=== PATIENT | female | born 1960 | race Caucasian/White ===

== ENCOUNTER 2018-08-13 16:44 | Emergency (ER) | payer BC ==
[2018-08-13] MEDS ORDERED: Sodium Chloride 0.9% 1,000 ML IV ONE ×2 (17:15→18:54)
[2018-08-13] MEDS: Sodium Chloride 0.9% 10 ML Syringe FLUSH PRN ×2 (17:27→18:20)
[2018-08-13] MEDS ORDERED: Iopamidol 612 MG/ML 100 ML Bottle IVPUSH ONE (17:43)
[2018-08-13] MEDS ORDERED: Piperacillin/Tazobactam 4.5 GM in Sodium Chloride 0.9% 100 ML IV STA (18:23)
--- NOTE | 2018-08-13 19:00 | CT ---
CT abdomen and pelvis Technique: Multiple axial sections were obtained from above the dome of the diaphragm inferiorly through the pubic symphysis. Intravenous contrast was utilized. No oral contrast has been given. Delayed images were also obtained through the abdomen and pelvis. Comparison: No prior abdominal imaging. Findings: Small portion of the visualized lung bases show nothing acute. Liver is small and nodular in appearance compatible with cirrhotic change. Surgical clips are seen from prior cholecystectomy. Spleen is enlarged with greatest measurement of 19.3 cm which is in AP dimension. Large amount of ascites is seen throughout the abdomen and pelvis. Adrenal glands show no nodule. Pancreas shows no discrete abnormality. Aorta shows atherosclerotic change which continues into the iliac vessels without aneurysm. No retroperitoneal adenopathy or mesenteric abnormalities are seen. Fluid within the pelvis pushes the bladder to the left side. Mild subcutaneous edema is seen. Delayed images shows contrast within the ureters as well as within the bladder. Bone window settings were reviewed which shows mild degenerative change throughout the spine. No acute osseous abnormality is appreciated. Impression: 1. Cirrhotic change within the liver with splenomegaly. 2. Large amount of ascites within the abdomen and pelvis. Pelvic ascites displaces the bladder to the left side. 3. Mild subcutaneous edema. 4. Other incidental findings. Diagnostic code #3
[2018-08-13] MEDS ORDERED: metroNIDAZOLE/Normal Saline 500 MG in Premix Bag 1 BAG IV ONE (19:07)
--- NOTE | 2018-08-13 19:07 | EDM.PDOC ---
ED HPI GENERAL MEDICAL PROBLEM - General Chief Complaint: Gastrointestinal Problem Stated Complaint: [facility] Time Seen by Provider: 08/13/18 17:40 Source of Information: Reports: Patient History Limitations: Reports: No Limitations - History of Present Illness INITIAL COMMENTS - FREE TEXT/NARRATIVE: 58-year-old female sent over from the walk-in clinic for abdominal pain and hypotension. Pain apparently started yesterday. She has a history of cirrhosis and advanced liver disease. She has had paracentesis in the past, last was in June and they took off approximately 5L. She feels distended today. She is complaining of significant abdominal pain. Reportedly at the walk-in clinic where she initially presented her pressure was 60s to 70 systolic. She is also complaining that she is short of breath. She report nausea and weakness. No fever. Primary care provider is Dr. Mejia. Patient has a past medical history of type 2 diabetes. - Related Data Allergies Allergy/AdvReac Type Severity Reaction Status Date / Time simvastatin Allergy Cannot Verified 08/13/18 16:54 Remember Past Medical History Gastrointestinal History: Reports: Cirrhosis, Other (See Below) Other Gastrointestinal History: ascites Endocrine/Metabolic History: Reports: Diabetes, Type II, Hypothyroidism Hematologic History: Reports: Other (See Below) Other Hematologic History: thrombocytopenia - Past Surgical History Female Surgical History: Reports: Hysterectomy Social & Family History - Family History Oncologic: Reports: Pancreatic - Tobacco Use Smoking Status *Q: Current Every Day Smoker Years of Tobacco use: 45 Packs/Tins Daily: 0.1 - Caffeine Use Caffeine Use: Reports: Coffee, Soda, Tea - Recreational Drug Use Recreational Drug Use: No ED ROS GENERAL - Review of Systems Review Of Systems: See Below Constitutional: Reports: Weakness. Denies: Fever, Chills Respiratory: Reports: Shortness of Breath Cardiovascular: Denies: Chest Pain GI/Abdominal: Reports: Abdominal Pain, Nausea, Vomiting ED EXAM, GI/ABD - Physical Exam Exam: See Below Exam Limited By: No Limitations General Appearance: Alert, Mild Distress, Obese Respiratory/Chest: No Respiratory Distress, Lungs Clear, Normal Breath Sounds Cardiovascular: No Murmur, Tachycardia GI/Abdominal Exam: Other (Ascites, significant tenderness with light palpation.) Neurological: Alert, Oriented, Normal Cognition Skin Exam: Jaundice EKG INTERPRETATION EKG Date: 08/13/18 Time: 17:20 Rhythm: NSR Rate (Beats/Min): 105 [place]: Normal P-Wave: Present QRS: Normal ST-T: Normal QT: Normal EKG Interpretation Comments: Sinus tachycardia at 105 bpm. Early "r" wave transition - RH pattern. Q waves I , II, III and AVL - non specific they are < 25% of the QRS complex. Reviewed by myself and Dr. Wilson. Course - Vital Signs Last Recorded V/S: Last Vital Signs Temp 98.0 F 08/13/18 16:49 Pulse 105 H 08/13/18 17:35 Resp 21 H 08/13/18 17:35 BP 106/63 08/13/18 16:49 Pulse Ox 93 L 08/13/18 17:35 - Orders/Labs/Meds Orders: Active Orders 24 hr Category Date Time Status EKG Documentation Completion [RC] ASDIRECTED Care 08/13/18 17:17 Active Oxygen Therapy, ED [RC] ASDIRECTED Care 08/13/18 17:17 Active Peripheral IV Care [RC] . DIRECTED Care 08/13/18 17:17 Active Chest 1V Frontal [CR] Stat Exams 08/13/18 17:17 Taken CULTURE BLOOD [BC] Stat Lab 08/13/18 18:18 Ordered CULTURE BLOOD [BC] Stat Lab 08/13/18 18:18 Ordered CULTURE URINE [RM] Stat Lab 08/13/18 18:18 Ordered UA W/MICROSCOPIC [URIN] Stat Lab 08/13/18 17:16 Ordered Norepinephrine 4 MG in D5W @ 2 MCG/MIN(250ml) Med 08/13/18 19:15 Ordered Norepinephrine [Levophed] 4 mg Dextrose 5% in Water 246 ml IV TITRATE Piperacillin/Tazobactam [Piperacil-Tazobact] 4.5 gm Med 08/13/18 18:23 Active Sodium Chloride 0.9% [Normal Saline] 100 ml IV NOW Sodium Chloride 0.9% [Normal Saline] 1,000 ml Med 08/13/18 18:54 Ordered IV ONETIME Sodium Chloride 0.9% [Saline Flush] Med 08/13/18 17:16 Active 10 ml FLUSH ASDIRECTED PRN metroNIDAZOLE/Normal Saline [Flagyl 500 MG in NS 100 ML Med 08/13/18 19:07 Ordered ] 500 mg Premix Bag 1 bag IV ONETIME Blood Culture x2 Reflex Set [OM.PC] Stat Oth 08/13/18 18:18 Ordered Peripheral IV Insertion Adult [OM.PC] Routine Oth 08/13/18 17:16 Ordered EKG 12 Lead [EK] Stat Ther 08/13/18 17:16 Ordered Medication Orders Piperacillin Sod/Tazobactam (Sod 4.5 gm/ Sodium Chloride) 100 mls @ 25 mls/hr IV NOW STA Stop: 08/13/18 22:22 Sodium Chloride (Normal Saline) 1,000 mls @ 999 mls/hr IV ONETIME ONE Stop: 08/13/18 19:54 Metronidazole 500 mg/ Premix 100 mls @ 100 mls/hr IV ONETIME ONE Stop: 08/13/18 20:06 Norepinephrine Bitartrate 4 mg (/ Dextrose/Water) 250 mls @ 7.5 mls/hr IV TITRATE RA; Protocol Sodium Chloride (Saline Flush) 10 ml FLUSH ASDIRECTED PRN PRN Reason: Keep Vein Open Last Admin: 08/13/18 18:20 Dose: 10 ml Admin: 08/13/18 17:27 Dose: 10 ml Labs: Laboratory Tests 08/13/18 08/13/18 08/13/18 Range/Units 17:30 17:30 17:30 WBC 10.46 H (3.98-10.04) K/mm3 RBC 3.63 L (3.98-5.22) M/mm3 Hgb 11.3 (11.2-15.7) gm/L Hct 33.4 L (34.1-44.9) % MCV 92.0 (79.4-94.8) fl MCH 31.1 (25.6-32.2) pg MCHC 33.8 (32.2-35.5) g/dl RDW Std Deviation 53.5 H (36.4-46.3) fL Plt Count 32 L (182-369) K/mm3 MPV 10.9 (9.4-12.3) fl Neutrophils % (Manual) 99 H (40-60) % Band Neutrophils % 0 (0-10) % Lymphocytes % (Manual) 0 L (20-40) % Atypical Lymphs % 0 % Monocytes % (Manual) 1 L (2-10) % Eosinophils % (Manual) 0 L (0.7-5.8) % Basophils % (Manual) 0 L (0.1-1.2) Platelet Estimate Decreased Plt Morphology Comment Normal Poikilocytosis 2+ moderate Remy Cells 2+ moderate Acanthocytes (Spur) 1+ slight RBC Morph Comment Not Reportable PT 17.6 H (9.5-12.1) SECONDS INR 1.63 APTT 34 H (24-31) SECONDS Sodium 123 L (136-145) mEq/L Potassium 4.1 (3.5-5.1) mEq/L Chloride 93 L (98-107) mEq/L Carbon Dioxide 17 L (21-32) mEq/L Anion Gap 17.1 H (5-15) BUN 39 H (7-18) mg/dL Creatinine 2.2 H (0.55-1.02) mg/dL Est Cr Clr Drug Dosing 25.46 mL/min Estimated GFR (MDRD) 23 (>60) mL/min BUN/Creatinine Ratio 17.7 (14-18) Glucose 134 H (74-106) mg/dL Lactic Acid (0.4-2.0) mmol/L Calcium 9.0 (8.5-10.1) mg/dL Total Bilirubin 8.2 H (0.2-1.0) mg/dL AST 39 H (15-37) U/L ALT 38 (14-59) U/L Alkaline Phosphatase 77 (46-116) U/L Troponin I < 0.017 (0.00-0.056) ng/mL C-Reactive Protein 23.5 H* (<1.0) mg/dL Total Protein 6.0 L (6.4-8.2) g/dl Albumin 1.9 L (3.4-5.0) g/dl Globulin 4.1 gm/dL Albumin/Globulin Ratio 0.5 L (1-2) Lipase 85 (73-393) U/L 08/13/18 Range/Units 17:30 WBC (3.98-10.04) K/mm3 RBC (3.98-5.22) M/mm3 Hgb (11.2-15.7) gm/L Hct (34.1-44.9) % MCV (79.4-94.8) fl MCH (25.6-32.2) pg MCHC (32.2-35.5) g/dl RDW Std Deviation (36.4-46.3) fL Plt Count (182-369) K/mm3 MPV (9.4-12.3) fl Neutrophils % (Manual) (40-60) % Band Neutrophils % (0-10) % Lymphocytes % (Manual) (20-40) % Atypical Lymphs % % Monocytes % (Manual) (2-10) % Eosinophils % (Manual) (0.7-5.8) % Basophils % (Manual) (0.1-1.2) Platelet Estimate Plt Morphology Comment Poikilocytosis [place] Cells Acanthocytes (Spur) RBC Morph Comment PT (9.5-12.1) SECONDS INR APTT (24-31) SECONDS Sodium (136-145) mEq/L Potassium (3.5-5.1) mEq/L Chloride (98-107) mEq/L Carbon Dioxide (21-32) mEq/L Anion Gap (5-15) BUN (7-18) mg/dL Creatinine (0.55-1.02) mg/dL Est Cr Clr Drug Dosing mL/min Estimated GFR (MDRD) (>60) mL/min BUN/Creatinine Ratio (14-18) Glucose (74-106) mg/dL Lactic Acid 5.5 H (0.4-2.0) mmol/L Calcium (8.5-10.1) mg/dL Total Bilirubin (0.2-1.0) mg/dL AST (15-37) U/L ALT (14-59) U/L Alkaline Phosphatase (46-116) U/L Troponin I (0.00-0.056) ng/mL C-Reactive Protein (<1.0) mg/dL Total Protein (6.4-8.2) g/dl Albumin (3.4-5.0) g/dl Globulin gm/dL Albumin/Globulin Ratio (1-2) Lipase (73-393) U/L Meds: Medications Generic Name Dose Route Start Last Admin Trade Name Freq PRN Reason Stop Dose Admin Piperacillin Sod/Tazobactam 100 mls @ 25 mls/hr 08/13/18 18:23 Sod 4.5 gm/ Sodium Chloride IV 08/13/18 22:22 NOW STA Sodium Chloride 1,000 mls @ 999 mls/hr 08/13/18 18:54 Normal Saline IV 08/13/18 19:54 ONETIME ONE Metronidazole 500 mg/ Premix 100 mls @ 100 mls/hr 08/13/18 19:07 IV 08/13/18 20:06 ONETIME ONE Norepinephrine Bitartrate 4 mg 250 mls @ 7.5 mls/hr 08/13/18 19:15 / Dextrose/Water IV TITRATE RA Protocol 2 MCG/MIN Sodium Chloride 10 ml 08/13/18 17:16 08/13/18 18:20 Saline Flush FLUSH 10 ml ASDIRECTED PRN Administration Keep Vein Open Discontinued Medications Generic Name Dose Route Start Last Admin Trade Name Freq PRN Reason Stop Dose Admin Sodium Chloride 1,000 mls @ 999 mls/hr 08/13/18 17:15 08/13/18 17:27 Normal Saline IV 08/13/18 18:15 999 mls/hr ONETIME ONE Administration Iopamidol 100 ml 08/13/18 17:43 08/13/18 18:20 Isovue-300 (61%) IVPUSH 08/13/18 17:44 100 ml ONETIME ONE Administration - Radiology Interpretation Free Text/Narrative:: CT abdomen and pelvis Technique: Multiple axial sections were obtained from above the dome of the diaphragm inferiorly through the pubic symphysis. Intravenous contrast was utilized. No oral contrast has been given. Delayed images were also obtained through the abdomen and pelvis. Comparison: No prior abdominal imaging. Findings: Small portion of the visualized lung bases show nothing acute. Liver is small and nodular in appearance compatible with cirrhotic change. Surgical clips are seen from prior cholecystectomy. Spleen is enlarged with greatest measurement of 19.3 cm which is in AP dimension. Large amount of ascites is seen throughout the abdomen and pelvis. Adrenal glands show no nodule. Pancreas shows no discrete abnormality. Aorta shows atherosclerotic change which continues into the iliac vessels without aneurysm. No retroperitoneal adenopathy or mesenteric abnormalities are seen. Fluid within the pelvis pushes the bladder to the left side. Mild subcutaneous edema is seen. Delayed images shows contrast within the ureters as well as within the bladder. Bone window settings were reviewed which shows mild degenerative change throughout the spine. No acute osseous abnormality is appreciated. Impression: 1. Cirrhotic change within the liver with splenomegaly. 2. Large amount of ascites within the abdomen and pelvis. Pelvic ascites displaces the bladder to the left side. 3. Mild subcutaneous edema. 4. Other incidental findings. Chest: Portable view of the chest was obtained. Comparison: No previous study. Heart size and mediastinum are within normal limits for portable technique. Lungs are clear. Bony structures are grossly intact. Impression: 1. Nothing acute is seen on portable chest x-ray. - Re-Assessments/Exams Free Text/Narrative Re-Assessment/Exam: 08/13/18 19:29 Discussed the case with Dr. Wilson, ER physician. Recommend starting the levophed. At this time blood pressure 94/50 with a heart rate of 107. Also recommended adding Flagyl. I discussed the results with the patient. She will need to go to [facility] in [place] where she has been hospitalized previously. Discussed the case with Dr. Metz, underwear trimmer at [facility] in [place]. He agrees to accept the patient. Will start Levothroid drip. Added Flagyl. She is on her second bag of NS at this time. Departure - Departure Time of Disposition: 19:38 Disposition: DC/Tfer to [facility] 02 Condition: Critical Clinical Impression: Sepsis, Advanced cirrhosis of liver - Discharge Information *PRESCRIPTION DRUG MONITORING PROGRAM REVIEWED*: No *COPY OF PRESCRIPTION DRUG MONITORING REPORT IN PATIENT ULISES: No Referrals: Allison Mejia MD [Primary Care Provider] - Forms: ED Department Discharge Additional Instructions: Patient will by rotors to [facility] in [place]. Dr. Metz accepting. - My Orders Last 24 Hours: My Active Orders 08/13/18 17:16 UA W/MICROSCOPIC [URIN] Stat Sodium Chloride 0.9% [Saline Flush] 10 ml FLUSH ASDIRECTED PRN Peripheral IV Insertion Adult [OM.PC] Routine EKG 12 Lead [EK] Stat 08/13/18 17:17 EKG Documentation Completion [RC] ASDIRECTED Oxygen Therapy, ED [RC] ASDIRECTED Peripheral IV Care [RC] . DIRECTED Chest 1V Frontal [CR] Stat 08/13/18 18:18 CULTURE BLOOD [BC] Stat CULTURE BLOOD [BC] Stat CULTURE URINE [RM] Stat Blood Culture x2 Reflex Set [OM.PC] Stat 08/13/18 18:23 Piperacillin/Tazobactam [Piperacil-Tazobact] 4.5 gm Sodium Chloride 0.9% [ Normal Saline] 100 ml IV NOW 08/13/18 18:54 Sodium Chloride 0.9% [Normal Saline] 1,000 ml IV ONETIME 08/13/18 19:07 metroNIDAZOLE/Normal Saline [Flagyl 500 MG in NS 100 ML] 500 mg Premix Bag 1 bag IV ONETIME 08/13/18 19:15 Norepinephrine 4 MG in D5W @ 2 MCG/MIN(250ml) Norepinephrine [Levophed] 4 mg Dextrose 5% in Water 246 ml IV TITRATE - Assessment/Plan Last 24 Hours: My Active Orders 08/13/18 17:16 UA W/MICROSCOPIC [URIN] Stat Sodium Chloride 0.9% [Saline Flush] 10 ml FLUSH ASDIRECTED PRN Peripheral IV Insertion Adult [OM.PC] Routine EKG 12 Lead [EK] Stat 08/13/18 17:17 EKG Documentation Completion [RC] ASDIRECTED Oxygen Therapy, ED [RC] ASDIRECTED Peripheral IV Care [RC] . DIRECTED Chest 1V Frontal [CR] Stat 08/13/18 18:18 CULTURE BLOOD [BC] Stat CULTURE BLOOD [BC] Stat CULTURE URINE [RM] Stat Blood Culture x2 Reflex Set [OM.PC] Stat 08/13/18 18:23 Piperacillin/Tazobactam [Piperacil-Tazobact] 4.5 gm Sodium Chloride 0.9% [ Normal Saline] 100 ml IV NOW 08/13/18 18:54 Sodium Chloride 0.9% [Normal Saline] 1,000 ml IV ONETIME 08/13/18 19:07 metroNIDAZOLE/Normal Saline [Flagyl 500 MG in NS 100 ML] 500 mg Premix Bag 1 bag IV ONETIME 08/13/18 19:15 Norepinephrine 4 MG in D5W @ 2 MCG/MIN(250ml) Norepinephrine [Levophed] 4 mg Dextrose 5% in Water 246 ml IV TITRATE
[2018-08-13] MEDS ORDERED: Norepinephrine 4 MG in Dextrose 5% in Water 246 ML IV SCH ×2 (19:15)
[2018-08-13] MEDS ORDERED: Dextrose 5% in Water 250 ML ONE (19:31)
[2018-08-13] MEDS ORDERED: Norepinephrine 4 MG/4 ML SDV ONE (19:31)
--- NOTE | 2018-08-14 07:11 | CR ---
Chest: Portable view of the chest was obtained. Comparison: No previous study. Heart size and mediastinum are within normal limits for portable technique. Lungs are clear. Bony structures are grossly intact. Impression: 1. Nothing acute is seen on portable chest x-ray. Diagnostic code #1
== END 2018-08-13 20:34 ==
LOC: JD.ED 16:44
DX: A41.9 Sepsis, unspecified organism (principal); K74.60 Unspecified cirrhosis of liver; F17.210 Nicotine dependence, cigarettes, uncomplicated; E11.9 Type 2 diabetes mellitus without complications; Z88.8 Allergy status to other drugs, medicaments and biological substances
CPT/HCPCS: 36415; 71045; 74177; 80053; 83605; 83690; 84484; 85007; 85027; 85610; 85730; 86140; 87040; 93005; 96361; 96365; 96367; 96368; 99285; J2543; J3490; J7030; J7040; J7060; Q9967; 93010; 99283